=== PATIENT | female | born 2005 | race Caucasian/White ===

== ENCOUNTER → 2025-04-25 | Day surgery (SDC) | payer OTHER ==
[~2025-04-25] MED LIST: Gadobenate Dimeglumine 2 ML, Sodium Chloride 0.9% 250 ML 10 ML, Iopamidol 8 ML, Lidocai... FS ONE; Iopamidol 300 61% 100 ML VIAL FS ONE
== END ==
LOC: CSHRAD 09:02
PROVIDERS: ATTEND Orthopaedic Surgery
PROC: BQ00YZZ Plain Radiography of Right Hip using Other Contrast (ICD-10-PCS; principal; 2025-04-25)
DX: S73.191A Other sprain of right hip, initial encounter (principal); X58.XXXA Exposure to other specified factors, initial encounter
CPT/HCPCS: 27093; 77002; A9577; J0166; J7050; Q9967